=== PATIENT | male | born 1980 | race Caucasian/White ===

== ENCOUNTER 2016-06-11 21:28 | Emergency (ER) | payer OTHER ==
[2016-06-11 21:39] VITALS: BP 151/96; PULSE 71; RESP 18; TEMP 98.1; O2SAT 100
== END 2016-06-11 22:14 | disposition home or self-care (01) | DRG 607 ==
LOC: ED 21:28
DX: R21 Rash and other nonspecific skin eruption (principal)
CPT/HCPCS: 99282

== ENCOUNTER 2017-10-30 22:22 | Emergency (ER) | payer OTHER ==
[2017-10-30] MEDS ORDERED: CEPHALEXIN 250 MG/5 ML BOTTLE ONE (22:47)
[2017-10-30] MEDS: CEPHALEXIN 250 MG/5 ML BOTTLE PO ONE (22:53)
[2017-10-30 23:11] VITALS: BP 136/74; PULSE 69; RESP 16; TEMP 98.5; O2SAT 98
== END 2017-10-30 23:36 | disposition home or self-care (01) | DRG 159 ==
LOC: ED 22:22
DX: K08.89 Other specified disorders of teeth and supporting structures (principal); Z72.0 Tobacco use
CPT/HCPCS: 99282; A9270-GY

== ENCOUNTER 2017-11-05 12:57 | Emergency (ER) | payer OTHER ==
[2017-11-05 13:11] VITALS: TEMP 97.3
[2017-11-05 14:10] VITALS: PULSE 61; RESP 18
[2017-11-05 15:27] VITALS: BP 128/86; O2SAT 97
== END 2017-11-05 15:23 | disposition home or self-care (01) | DRG 552 ==
LOC: ED 12:57
DX: M54.5 Low back pain (principal); E11.9 Type 2 diabetes mellitus without complications; M25.552 Pain in left hip; Z72.0 Tobacco use
CPT/HCPCS: 72120; 73502; 99282; 99283

== ENCOUNTER 2017-11-30 12:59 | Emergency (ER) | payer OTHER ==
[2017-11-30 12:59] VITALS: O2SAT 97
[2017-11-30 14:35] VITALS: BP 130/79; PULSE 78; RESP 18; TEMP 98.5
== END 2017-11-30 14:22 | disposition home or self-care (01) | DRG 125 ==
LOC: ED 12:59
DX: H10.31 Unspecified acute conjunctivitis, right eye (principal)
CPT/HCPCS: 99282

== ENCOUNTER 2018-03-12 14:23 | Emergency (ER) | payer OTHER ==
[2018-03-12 14:33] VITALS: RESP 16; TEMP 97.2; O2SAT 100
[2018-03-12] MEDS ORDERED: BACITRACIN 500 U/GM OIN TOP ONE ×2 (14:50→14:54)
[2018-03-12 15:21] VITALS: BP 140/82; PULSE 66
== END 2018-03-12 15:10 | disposition home or self-care (01) | DRG 563 ==
LOC: ED 14:23
DX: S62.665A Nondisplaced fracture of distal phalanx of left ring finger, initial encounter for closed fracture (principal)
CPT/HCPCS: 99282; A9270-GY

== ENCOUNTER 2018-11-15 13:01 | Emergency (ER) | payer OTHER ==
[2018-11-15 13:37] VITALS: RESP 20; TEMP 97.7; O2SAT 97
[2018-11-15 14:38] VITALS: BP 129/89; PULSE 72
[2018-11-15 14:47] LABS: AMPHETAMINES NEGATIVE (NEGATIVE); BARBITUATES NEGATIVE (NEGATIVE); BENZODIAZEPINES NEGATIVE (NEGATIVE); CANNABINOL(THC) NEGATIVE (NEGATIVE); COCAINE(COC) NEGATIVE (NEGATIVE); METHADONE NEGATIVE (NEGATIVE); METHAMPHETAMINES NEGATIVE (NEGATIVE); OPIATES(OPI) NEGATIVE (NEGATIVE); OXYCODONE(OXY) NEGATIVE (NEGATIVE); PROPOXYPHENE(PPX) NEGATIVE (NEGATIVE); TRICYCLIC ANTIDEPRESSANTS NEGATIVE (NEGATIVE)
== END 2018-11-15 15:27 | disposition home or self-care (01) | DRG 552 ==
LOC: ED 13:01
DX: M54.9 Dorsalgia, unspecified (principal); G89.29 Other chronic pain; M54.17 Radiculopathy, lumbosacral region; F15.11 Other stimulant abuse, in remission
CPT/HCPCS: 80305; 82272; 99282

== ENCOUNTER 2018-11-26 22:25 | Emergency (ER) | payer OTHER ==
[2018-11-26 22:25] VITALS: O2SAT 97
[2018-11-26 22:47] VITALS: BP 154/86; PULSE 86; RESP 20; TEMP 97.2
== END 2018-11-26 23:12 | disposition home or self-care (01) | DRG 159 ==
LOC: ED 22:25
DX: K08.89 Other specified disorders of teeth and supporting structures (principal)
CPT/HCPCS: 99282

== ENCOUNTER 2018-12-01 16:05 | Emergency (ER) | payer OTHER ==
[2018-12-01 16:26] VITALS: TEMP 97.7
[2018-12-01 18:04] LABS: BASOPHILS % (AUTO) 1 % (0-3); EOSINOPHILS % (AUTO) 2 % (0-9); HEMATOCRIT 45 % (39-53); HEMOGLOBIN 15.5 gm/dl (13.5-17.7); LYMPHOCYTES % (AUTO) 31.9 % (10-50); MEAN CORPUSCULAR HEMOGLOBIN 29.4 pg (27.0-32.0); MEAN CORPUSCULAR HGB CONC 34.8 gm/dl (32.0-36.0); MEAN CORPUSCULAR VOLUME 85 fL (80-100); MONOCYTES % (AUTO) 8.6 % (0-12); NEUTROPHILS % (AUTO) 57.1 % (37-80)
[2018-12-01 19:08] VITALS: BP 137/75; PULSE 79; RESP 18; O2SAT 98
== END 2018-12-01 19:09 | disposition home or self-care (01) | DRG 914 ==
LOC: ED 16:05
DX: S97.81XA Crushing injury of right foot, initial encounter (principal); R19.5 Other fecal abnormalities
CPT/HCPCS: 36415; 73630; 85025; 99283; L4350